=== PATIENT | male | born 1945 | race Caucasian/White ===

== ENCOUNTER → 2018-10-19 10:46 | Outpatient (CLI) | payer MEDICARE | END | disposition home or self-care (01) | LOC: D.US 10:46 | PROVIDERS: ATTEND Internal Medicine Nephrology | DX: M79.605 Pain in left leg (principal); M79.604 Pain in right leg ==

== ENCOUNTER 2018-12-13 08:42 | Day surgery (SDC) | payer MEDICARE ==
[~2018-12-13] VITALS: Ht 177.8 cm; Wt 77.3 kg
[2018-12-13 09:20] LABS: BASOPHILS 0.4 % (0-2); EOSINOPHILS 4.2 % (0-7); HEMATOCRIT 32.7 % (42.0-54.0); HEMOGLOBIN 10.9 g/dL (13.5-17.5); IMMATURE GRANULOCYTES 0.2 % (0-5); LYMPHOCYTES 25.6 % (15-50); MCHC 33.3 g/dL (31.0-37.0); MCV 99.1 fL (80.0-100.0); MEAN PLATELET VOLUME 9.9 fL (7.4-10.4); MONOCYTES 14.4 % (2-11); NEUTROPHILS 55.2 % (40-80); PLATELET COUNT 151 10x3/uL (130-400); RDW 15.2 % (11.5-14.5); WBC 8.2 10x3/uL (4.8-10.8)
[2018-12-13 09:24] LABS: ANION GAP 10.6 mmol/L (8-16); CALCIUM 8.7 mg/dL (8.5-10.1); CARBON DIOXIDE 31.3 mmol/L (21.0-32.0); POTASSIUM - SERUM 3.9 mmol/L (3.5-5.1)
[2018-12-13 09:33] LABS: INR 1.15 (0.85-1.17); PROTIME 14.2 SECONDS (11.6-15.0)
[2018-12-13] MEDS ORDERED: LIPITOR40 MG PO (11:18)
[2018-12-13] MEDS ORDERED: LEVOTHYROXINE125 MCG PO (11:18)
[2018-12-13] MEDS ORDERED: RENA-VITE TABL0.8 MG PO (11:19)
[2018-12-13] MEDS ORDERED: HYDRALAZINE HCL25 MG PO (11:19)
[2018-12-13] MEDS ORDERED: ZOLOFT100 MG PO (11:20)
[2018-12-13] MEDS ORDERED: FERROUS SULFAT325 MG PO (11:20)
[2018-12-13] MEDS ORDERED: CEREFOLIN TAB1 TAB PO (11:21)
[2018-12-13] MEDS ORDERED: BASAGLAR K100 UNIT/1 SC (11:22)
[2018-12-13] MEDS ORDERED: ULTRAM50 MG PO (11:23)
[2018-12-13 11:41] VITALS: Ht 177.8 cm; Wt 77.3 kg
--- NOTE | 2018-12-13 13:07 | NUR ---
[address] VENTURA OFFICE NOTIFIED. CXR FAXED TO OFFICE. DR. OCONNOR'S OFFICE NURSE NOTIFIED PER DR. MCGOVERN'S ORDER. RENAL ADA DIET SERVED. PT. HAS O2 OFF AND 94% ON ROOM AIR AT PRESENT TIME ON BEDREST.
--- NOTE | 2018-12-13 13:34 | NUR ---
1330 ROOM AIR 94% SAT. ATE 30% RENAL ADA DIET. JOSLYN ROSENTHAL .
--- NOTE | 2018-12-13 14:02 | NUR ---
1400 DR. ROCHA OFFICE NOTIFIED OF CONSULT. DR. OCONNOR NOTIFIED OF DR. OCONNOR OFFICE AND CONFUSION ABOUT DR. ROCHA OFFICE CONSULT. JOSLYN HODGE APN PAGED.
--- NOTE | 2018-12-13 14:44 | NUR ---
1440 ROOM CHECK PULSE OX 90-94% ON ROOM AIR.
--- NOTE | 2018-12-13 15:46 | NUR ---
3081 MARILUZ HODGE APN PAGED THRU OFFICE.
--- NOTE | 2018-12-13 16:45 | NUR ---
1640 ROOM TRUONG, O2 SAT 90-94% ON BEDREST RR 20 PULSE IS 80. STATES HE USUSALLY GETS HIS MEDICATION THRU HOSPISE BUT HAS USED [facility] BEFORE.
--- NOTE | 2018-12-13 20:14 | NUR ---
1740 PULSE OX 90-94% ON ROOM AIR RENAL ADA DIET ORDERED A CALL PLACED TO DR. ROCHA OFFICE MESSAGE LEFT ON VOICE MAIL TO CALL. 1830 PT DRESSED AND AT DESK STATES HE IS NOT STAYING ANY LONGER AT THE HOSPITAL. AND READY TO GO. 1840 DC INSTS GIVEN TO CONTINUE HOME MEDICATIONS AND FOLLOW UP WITH DR. ROCHA. PT WILL CONTINUE DIALYSIS SCHEDULED TOMORROW.
--- NOTE | 2018-12-13 20:17 | NUR ---
1849 RELEASED IN [facility]
== END 2018-12-13 18:50 | disposition home or self-care (01) ==
LOC: D.OPS 08:42
PROVIDERS: Surgery; ATTEND Internal Medicine Nephrology
DX: N18.6 End stage renal disease (principal); Z53.09 Procedure and treatment not carried out because of other contraindication; J90 Pleural effusion, not elsewhere classified; R93.1 Abnormal findings on diagnostic imaging of heart and coronary circulation; I25.10 Atherosclerotic heart disease of native coronary artery without angina pectoris; Z01.812 Encounter for preprocedural laboratory examination

== ENCOUNTER → 2018-12-16 10:45 | Outpatient (CLI) | payer MEDICARE ==
[2018-12-13 11:41] VITALS: BMI 24.4
[~2018-12-16 10:45] MED LIST: BASAGLAR K100 UNIT/1 SC; CEREFOLIN TAB1 TAB PO; FERROUS SULFAT325 MG PO; HYDRALAZINE HCL25 MG PO; LEVOTHYROXINE125 MCG PO; LIPITOR40 MG PO; RENA-VITE TABL0.8 MG PO; ULTRAM50 MG PO; ZOLOFT100 MG PO
== END | disposition home or self-care (01) ==
LOC: D.RAD 10:45
PROVIDERS: ATTEND Internal Medicine Nephrology
DX: R06.02 Shortness of breath (principal)

== ENCOUNTER → 2019-01-11 10:36 | Outpatient (CLI) | payer MEDICARE ==
[2018-12-13 11:41] VITALS: BMI 24.4
[~2019-01-11 10:36] MED LIST changes: -HYDRALAZINE HCL25 MG PO; +HYDRALAZINE HCL50 MG PO; +HYDROCODON-ACE1 EAC7 PO; +PROTONIX40 MG PO; -ZOLOFT100 MG PO; +ZOLOFT50 MG PO
== END | disposition home or self-care (01) ==
LOC: D.RAD 10:36
PROVIDERS: ATTEND Internal Medicine Nephrology
DX: R06.02 Shortness of breath (principal)

== ENCOUNTER → 2019-02-06 13:20 | Outpatient (CLI) | payer MEDICARE ==
[2018-12-13 11:41] VITALS: BMI 24.4
[2019-02-07 11:10] LABS: ANA REFLEX - DIRECT Negative (Negative)
== END | disposition home or self-care (01) ==
LOC: D.LABREF 13:20
PROVIDERS: ATTEND Internal Medicine Pulmonary Disease
DX: J90 Pleural effusion, not elsewhere classified (principal)

== ENCOUNTER → 2019-02-21 08:08 | Outpatient (CLI) | payer MEDICARE ==
[2018-12-13 11:41] VITALS: BMI 24.4
== END | disposition home or self-care (01) ==
LOC: D.CT 02-09 09:30
PROVIDERS: ATTEND Internal Medicine Pulmonary Disease
DX: J90 Pleural effusion, not elsewhere classified (principal)

== ENCOUNTER 2019-03-02 16:49 | Inpatient (IN) | payer MEDICARE ==
[~2019-03-02] VITALS: Ht 177.8 cm; Wt 76.8 kg
[~2019-03-02 16:49] MED LIST changes: -HYDROCODON-ACE1 EAC7 PO; -PROTONIX40 MG PO
--- NOTE | 2019-03-02 17:05 | NUR ---
PATIENT ARRIVED HERE FROM HIS HOME. HE WAS C/O BACK PAIN AND ABD PAIN. HE IS A DIRECT ADMIT TO DR ROCHA. HE IS ALERT AND ORIENTED, HE DENIES ANY NEEDS AT THIS TIME. HE CAME TO THE FLOOR BY STRETCHER WITH EMT'S AND ARRIVED BY AMBULANCE.
[2019-03-02] MEDS ORDERED: PROTONIX40 MG PO (17:22)
[2019-03-02] MEDS ORDERED: HYDROCODON-ACE1 EAC7 PO (17:23)
[2019-03-02 17:36] VITALS: BP 131/76
[2019-03-02 17:53] LABS: BASOPHILS 0.1 % (0-2); EOSINOPHILS 1.9 % (0-7); HEMOGLOBIN 11.5 g/dL (13.5-17.5); IMMATURE GRANULOCYTES 0.8 % (0-5); LYMPHOCYTES 13.3 % (15-50); MCH 35.6 pg (26.0-34.0); MCHC 33.8 g/dL (31.0-37.0); MCV 105.3 fL (80.0-100.0); MEAN PLATELET VOLUME 9.8 fL (7.4-10.4); MONOCYTES 13.5 % (2-11); NEUTROPHILS 70.4 % (40-80); PLATELET COUNT 140 10x3/uL (130-400); RBC 3.23 10x6/uL (4.20-6.10); RDW 13.5 % (11.5-14.5); WBC 8.5 10x3/uL (4.8-10.8)
[2019-03-02 18:08] LABS: ALBUMIN 2.9 g/dL (3.4-5.0); ANION GAP 12.5 mmol/L (8-16); BILIRUBIN - TOTAL 0.59 mg/dL (0.2-1.3); CALCIUM 8.6 mg/dL (8.5-10.1); CREATININE - SERUM 5.8 mg/dL (0.6-1.3); POTASSIUM - SERUM 4.5 mmol/L (3.5-5.1); PROTEIN - SERUM 8.2 g/dL (6.4-8.2)
[2019-03-02 18:25] VITALS: BP 131/76; BMI 24.1
--- NOTE | 2019-03-02 19:30 | NUR ---
EVENING ROUNDS COMPLETE. PT SITTING UP IN BED. NO SIGNS OF DISTRESS. AAOX4. CL IN REACH, BED IN LOWEST POSITION.
[2019-03-02 20:00] VITALS: BP 133/77
--- NOTE | 2019-03-02 21:49 | NUR ---
PT WITH HEART RATE OF 84 FLUTTER PER CERAMIC TILE MECHANIC
[2019-03-03] VITALS: BP 127/71
[2019-03-03 02:35] LABS: BASOPHILS 0.2 % (0-2); EOSINOPHILS 3.2 % (0-7); IMMATURE GRANULOCYTES 0.5 % (0-5); LYMPHOCYTES 15.8 % (15-50); MCH 34.8 pg (26.0-34.0); MCHC 33.3 g/dL (31.0-37.0); MCV 104.4 fL (80.0-100.0); MEAN PLATELET VOLUME 9.9 fL (7.4-10.4); MONOCYTES 15.3 % (2-11); PLATELET COUNT 138 10x3/uL (130-400); RBC 3.16 10x6/uL (4.20-6.10); RDW 13.4 % (11.5-14.5); WBC 8.6 10x3/uL (4.8-10.8)
[2019-03-03 02:58] LABS: ALBUMIN 2.7 g/dL (3.4-5.0); ANION GAP 14.9 mmol/L (8-16); BILIRUBIN - TOTAL 0.62 mg/dL (0.2-1.3); CALCIUM 8.6 mg/dL (8.5-10.1); CARBON DIOXIDE 26.2 mmol/L (21.0-32.0); CREATININE - SERUM 5.8 mg/dL (0.6-1.3); POTASSIUM - SERUM 4.1 mmol/L (3.5-5.1); PROTEIN - SERUM 7.9 g/dL (6.4-8.2)
[2019-03-03 04:00] VITALS: BP 178/98
[2019-03-03 08:32] VITALS: BP 143/85
[2019-03-03 10:47] LABS: APPEARANCE CLEAR (CLEAR); COLOR YELLOW (YELLOW); NITRITE NEGATIVE (NEGATIVE); PROTEIN 2+ mg/dL (NEGATIVE); SPECIFIC GRAVITY 1.005 (1.005-1.020)
[2019-03-03 10:48] LABS: BILIRUBIN NEGATIVE (NEGATIVE); GLUCOSE NEGATIVE (NEGATIVE); KETONE NEGATIVE (NEGATIVE); UROBILINOGEN NORMAL (NORMAL)
[2019-03-03 11:03] LABS: BACTERIA NONE SEEN /hpf (NEGATIVE); EPITHELIAL CELLS NSEEN /hpf (0-5); RED CELLS - URINE 0-5 /hpf (0-5); WHITE CELLS - URINE 0-5 /hpf (NEGATIVE)
[2019-03-03 13:36] VITALS: Ht 177.8 cm; Wt 76.8 kg
[2019-03-03 14:52] VITALS: BP 113/50
--- NOTE | 2019-03-03 16:45 | NUR ---
PATIENT CAME BACK FROM XRAY. THE PAIN MEDICATION IS BARELY TOUCHING THE PAIN. HE IS STILL SCHEDULED TO HAVE DIALYSIS THIS EVENING AROUND 1800.
--- NOTE | 2019-03-03 17:44 | MORECARE ---
CASE MANAGEMENT DISCHARGE SUMMARY PATIENT: PHOEBE MCKEON UNIT: [id number] ADM DATE: 03/03/19 AGE: 73 : 44 SEX: M ROOM/BED: D.2103 AUTHOR: KALANI,DOC PHYSICIAN: REFERRING PHYSICIAN: EUNICE ROCHA DO DATE OF SERVICE: 03/03/19 Discharge Plan Patient Name: PHOEBE MCKEON Facility: [facility]:[place] : 1945 Planned Disposition: Home with Hospice Anticipated Discharge Date: Discharge Date: Expected LOS: Initial Reviewer: [email or web address] Initial Review Date: 03/02/2019 Generated: 03/03/19 6:43 pm Comments DCP- Discharge Planning Updated by [email or web address]: Boby Jordan on 03/03/19 4:[address] Patient Name: PHOEBE MCKEON Admission Status: Urgent Accout number: [id number] Admission Date: 03-03-2019 : 1945 Admission Diagnosis: Attending: EUNICE ROCHA Current LOS: 1 Anticipated DC Date: Planned Disposition: Home with Hospice Primary Insurance: MEDICARE A & B PLANNED EXTERNAL PROVIDER: HOSPICE HOME CARE Discharge Planning Comments: CM MET WITH PT IN ROOM TO DISCUSS DISCHARGE PLANNING AND NEEDS. PT REPORTS LIVING AT HOME INDEPENDENTLY WITH HIS . PT HAS WALKER, WHEELCHAIR AND LIFT CHAIR. PT HAS HOSPICE WITH HOSPICE HOME CARE. PT WILL RESUME THEIR CARE AT DISCHARGE. CHOICE SIGNED. PT HAS NO OTHER OUTSIDE SERVICES ASSISTING IN THE HOME. CM DISCUSSED AVAILABILITY OF HOME HEALTH, REHAB SERVICES AND MEDICAL EQUIPMENT. PT DENIES DISCHARGE NEEDS OTHER THAN HOSPICE RESUMPTION. PT REPORTS SOMEONE WILL PICK HIM UP FOR DISCHARGE HOME. TO RESUME HOSPICE AT DISCHARGE, NOTIFY HOSPICE AT [phone], FAX DISCHARGE INFORMATION TO HOSPICE HOME CARE AT [phone]. CM TO CONTINUE TO FOLLOW AND ASSIST NEEDED. Automobile Dealer: Boby Jordan DCPIA - Discharge Planning Initial Assessment Updated by [email or web address]: Boby Jordan on 03/03/19 5:39 pm * Is the patient Alert and Oriented? Yes * How many steps to enter\exit or inside your home? NONE * PCP DR ROCHA * Pharmacy [facility] IN [place] * Preadmission Environment Home with Family * ADLs Independent * Equipment Walker Wheelchair * Other Equipment LIFT CHAIR HOSPICE PROVIDES MEDICAL EQUIPMENT * List name and contact numbers for known caregivers / representatives who currently or will assist patient after discharge: SHAHZAD, SPOUSE, * Verbal permission to speak to the caregivers and representatives has been obtained from the patient. N/A * Community resources currently utilized Hospice Home * Please name any agencies selected above. HOSPICE HOME CARE * Additional services required to return to the preadmission environment? No * Can the patient safely return to the preadmission environment? Yes * Has this patient been hospitalized within the prior 30 days at any hospital? No Patient Name: PHOEBE MCKEON Page 00566 at 1744 All edits/amendments must be made on the electronic document DICTATION DATE: 03/03/191742 ENROLLMENT REPRESENTATIVE: OLIVA 03/03/191742 RPT#: [id number] DC DATE: STATUS: ADM IN [facility] [address] [place] [address] END OF REPORT
--- NOTE | 2019-03-03 17:51 | MORECARE ---
CASE MANAGEMENT DISCHARGE SUMMARY PATIENT: PHOEBE MCKEON UNIT: [id number] ADM DATE: 03/03/19 AGE: 73 : 44 SEX: M ROOM/BED: D.2103 AUTHOR: KALANI,DOC PHYSICIAN: REFERRING PHYSICIAN: EUNICE ROCHA DO DATE OF SERVICE: 03/03/19 Discharge Plan Patient Name: PHOEBE MCKEON Facility: [facility]:[place] : 1945 Planned Disposition: Home with Hospice Anticipated Discharge Date: Discharge Date: Expected LOS: Initial Reviewer: [email or web address] Initial Review Date: 03/02/2019 Generated: 03/03/19 6:51 pm Comments DCP- Discharge Planning Updated by [email or web address]: Boby Jordan on 03/03/19 4:[address] Patient Name: PHOEBE MCKEON Admission Status: Urgent Accout number: [id number] Admission Date: 03-03-2019 : 1945 Admission Diagnosis: Attending: EUNICE ROCHA Current LOS: 1 Anticipated DC Date: Planned Disposition: Home with Hospice Primary Insurance: MEDICARE A & B PLANNED EXTERNAL PROVIDER: HOSPICE HOME CARE Discharge Planning Comments: CM MET WITH PT IN ROOM TO DISCUSS DISCHARGE PLANNING AND NEEDS. PT REPORTS LIVING AT HOME INDEPENDENTLY WITH HIS . PT HAS WALKER, WHEELCHAIR AND LIFT CHAIR. PT HAS HOSPICE WITH HOSPICE HOME CARE. PT WILL RESUME THEIR CARE AT DISCHARGE. CHOICE SIGNED. PT HAS NO OTHER OUTSIDE SERVICES ASSISTING IN THE HOME. CM DISCUSSED AVAILABILITY OF HOME HEALTH, REHAB SERVICES AND MEDICAL EQUIPMENT. PT DENIES DISCHARGE NEEDS OTHER THAN HOSPICE RESUMPTION. PT REPORTS SOMEONE WILL PICK HIM UP FOR DISCHARGE HOME. TO RESUME HOSPICE AT DISCHARGE, NOTIFY HOSPICE AT [phone], FAX DISCHARGE INFORMATION TO HOSPICE HOME CARE AT [phone]. CM TO CONTINUE TO FOLLOW AND ASSIST NEEDED. Branch Rental Manager: Boby Jordan DCPIA - Discharge Planning Initial Assessment Updated by [email or web address]: Boby Jordan on 03/03/19 5:39 pm * Is the patient Alert and Oriented? Yes * How many steps to enter\exit or inside your home? NONE * PCP DR ROCHA * Pharmacy [facility] IN [place] * Preadmission Environment Home with Family * ADLs Independent * Equipment Walker Wheelchair * Other Equipment LIFT CHAIR HOSPICE PROVIDES MEDICAL EQUIPMENT * List name and contact numbers for known caregivers / representatives who currently or will assist patient after discharge: SHAHZAD, SPOUSE, * Verbal permission to speak to the caregivers and representatives has been obtained from the patient. N/A * Community resources currently utilized Hospice Home * Please name any agencies selected above. HOSPICE HOME CARE * Additional services required to return to the preadmission environment? No * Can the patient safely return to the preadmission environment? Yes * Has this patient been hospitalized within the prior 30 days at any hospital? No External Providers External Provider: [facility] Next Contact Date: 03/03/2019 Service Request Date: Service Type: Resolution: Reviewer: Comments: Coverage Notice Reviewer: [id number] Reji Jordan Notice Issued Date-Time: 03/03/2019 15:40 Notice Type: IM Discharge Notice Notice Delivered To: Patient Relationship to Patient: Occupational Therapy Director Name: Delivery Method: HAND - Hand Delivered Chana Days: Prior Verbal Notification: Recipient Understood Notice: Yes Recipient Signature: Yes Med Rec Note Co-signed by Attending: Coverage Notice Comment: HOSPICE HOME CARE Last DP export: 03/03/19 4:44 p Patient Name: PHOEBE MCKEON Page [phone] at 1751 All edits/amendments must be made on the electronic document DICTATION DATE: 03/03/191750 HEAD MACHINE FEEDER: OLIVA 03/03/191750 RPT#: [id number] DC DATE: STATUS: ADM IN [facility] [address] [place] [address] END OF REPORT
--- NOTE | 2019-03-03 18:38 | NUR ---
PATIENT IS IN DIALYSIS AT THIS TIME.
[2019-03-03 20:00] VITALS: BP 141/97
--- NOTE | 2019-03-03 21:00 | NUR ---
PT RETURNED TO ROOM. NO COMPLAINTS AT THIS TIME. WILL CTM.
[2019-03-04] VITALS: BP 130/79
--- NOTE | 2019-03-04 03:26 | NUR ---
PT FOUND WONDERING IN THE [place]. NOT ORIENTED TO SITUATION OR PLACE, SEARCHING FOR HIS . WILL JEISON
[2019-03-04 04:00] VITALS: BP 138/69
[2019-03-04 05:07] LABS: BASOPHILS 0.3 % (0-2); EOSINOPHILS 3.6 % (0-7); IMMATURE GRANULOCYTES 0.6 % (0-5); MCH 35.6 pg (26.0-34.0); MCHC 33.6 g/dL (31.0-37.0); MCV 106.1 fL (80.0-100.0); MEAN PLATELET VOLUME 10.6 fL (7.4-10.4); MONOCYTES 13.9 % (2-11); NEUTROPHILS 62.6 % (40-80); PLATELET COUNT 144 10x3/uL (130-400); RBC 3.76 10x6/uL (4.20-6.10); RDW 13.6 % (11.5-14.5); WBC 9.9 10x3/uL (4.8-10.8)
[2019-03-04 05:13] LABS: HEMATOCRIT 39.9 % (42.0-54.0); HEMOGLOBIN 13.4 g/dL (13.5-17.5)
[2019-03-04 05:31] LABS: ALBUMIN 2.9 g/dL (3.4-5.0); ANION GAP 16.4 mmol/L (8-16); BILIRUBIN - TOTAL 0.67 mg/dL (0.2-1.3); CALCIUM 9.1 mg/dL (8.5-10.1); CARBON DIOXIDE 25.3 mmol/L (21.0-32.0); CREATININE - SERUM 4.9 mg/dL (0.6-1.3); PHOSPHOROUS 5.2 mg/dL (2.5-4.9); POTASSIUM - SERUM 4.7 mmol/L (3.5-5.1); PROTEIN - SERUM 8.8 g/dL (6.4-8.2)
--- NOTE | 2019-03-04 07:56 | NUR ---
A/A/OX4. UP AMB IN HALLWAYS AND ROOM. STATES HE WANTS TO GO HOME TODAY. DENIES ANY PAIN OR DISCOMFORT AND NO REQUESTS VOICED. ASSESSMENT COMPLETED AND WILL CONTINUE POC.
[2019-03-04 10:35] VITALS: BP 196/61
--- NOTE | 2019-03-04 10:48 | NUR ---
I have reviewed this patient and I concur with the Shift Assessment completed by the Licensed Practical Nurse today this shift.
[2019-03-04 12:50] VITALS: BP 116/78
--- NOTE | 2019-03-04 17:23 | NUR ---
ASKED ME IF I COULD SEE THOSE "PISS ANTS" CRAWLING ON HIS MEAL TRAY. WHEN I TOLD HE THERE WERE NO ANTS, HE SAID YOU'RE JUST LIKE MY DAUGHTER, SHE NEVER SEES ANYTHING I SEE. HE IS ORIENTED OTHERWISE.
--- NOTE | 2019-03-04 19:00 | NUR ---
PT CARE ASSUMED. RR EVEN AND UNLABORED ON RA. PT RESTING QUIETLY WITH EYES CLOSED. NO NEEDS EXPRESSED. NO S/S OF DISTRESS NOTED AT THIS TIME. WILL CPCO.
[2019-03-04 20:00] VITALS: BP 132/74
--- NOTE | 2019-03-04 21:04 | NUR ---
PT YELLING IN THE HALLWAY FOR HIS SHAHZAD. DIFFICULT TO REDIRECT BACK TO HIS ROOM. WILL CTM.
--- NOTE | 2019-03-05 00:12 | NUR ---
PT PULLED OFF TELEMETRY AND IS REFUSING TO PUT BACK ON.
[2019-03-05 05:52] LABS: BASOPHILS 0.2 % (0-2); EOSINOPHILS 5.4 % (0-7); HEMATOCRIT 36.5 % (42.0-54.0); HEMOGLOBIN 12.1 g/dL (13.5-17.5); IMMATURE GRANULOCYTES 0.6 % (0-5); MCH 34.5 pg (26.0-34.0); MCHC 33.2 g/dL (31.0-37.0); MEAN PLATELET VOLUME 10.1 fL (7.4-10.4); MONOCYTES 13.8 % (2-11); PLATELET COUNT 150 10x3/uL (130-400); RBC 3.51 10x6/uL (4.20-6.10); RDW 13.2 % (11.5-14.5); WBC 8.1 10x3/uL (4.8-10.8)
[2019-03-05 06:16] LABS: ALBUMIN 2.7 g/dL (3.4-5.0); BILIRUBIN - TOTAL 0.49 mg/dL (0.2-1.3); CALCIUM 8.7 mg/dL (8.5-10.1); CARBON DIOXIDE 24.6 mmol/L (21.0-32.0); CREATININE - SERUM 6.6 mg/dL (0.6-1.3); MAGNESIUM - SERUM 2.2 mg/dL (1.8-2.4); POTASSIUM - SERUM 4.6 mmol/L (3.5-5.1); PROTEIN - SERUM 8.2 g/dL (6.4-8.2)
[2019-03-05 07:51] VITALS: BP 104/68
--- NOTE | 2019-03-05 08:00 | NUR ---
JUST AWOKE AND IS A/A/OX4. DENIES ANY PAIN, DISCOMFORT OR PROBLEMS WITH NO REQUESTS VOICED. SL PATENT TO RIGHT AC WITHOUT REDNESS OR EDEMA AT SITE. DAUTHER AND SON IN LAW AT BEDSIDE. ASSESSMENT COMPLETED AND WILL CONTINUE POC.
[2019-03-05 12:11] VITALS: BP 117/69
[2019-03-05 15:39] VITALS: BP 127/75
[2019-03-05 15:42] LABS: APPEARANCE CLEAR (CLEAR); BACTERIA FEW /hpf (NEGATIVE); BILIRUBIN NEGATIVE (NEGATIVE); COLOR YELLOW (YELLOW); EPITHELIAL CELLS 0-5 /hpf (0-5); GLUCOSE NEGATIVE (NEGATIVE); KETONE NEGATIVE (NEGATIVE); MUCUS <1+ /lpf (NONE SEEN); NITRITE NEGATIVE (NEGATIVE); PROTEIN 2+ mg/dL (NEGATIVE); UROBILINOGEN NORMAL (NORMAL); WHITE CELLS - URINE 0-5 /hpf (NEGATIVE)
--- NOTE | 2019-03-05 15:45 | NUR ---
URINE SPEC COLLECTED AND TAKEN TO LAB.
--- NOTE | 2019-03-05 21:12 | NUR ---
PTS DAUGHTER CAME TO THE DESK AND AGRESSIVELY ASKED FOR HER FATHER TO BE DISCHARGED BECAUSE THEY WERE REFUSING FISTULA PLACEMENT. INFORMED HER THAT WE HAD NO ORDERS TO DISCHARGE AT THIS TIME. SHE STATED THAT SHE WILL "BE MAKING SOME CALLS". RECEIVED PHONE ORDER FROM [facility] PER DR AJ BULLOCK TO DISCHARGE HOME AND RESUME PRE HOSPITALIZATION MEDS. D/C PAPER WORK SIGNED. ALL QUESTIONS ANSWERED. PIV D/C FROM RIGHT AC. CATHETER TIP INTACT. PT LEFT VIA W/C WITH SCOTTIE.
--- NOTE | 2019-03-06 08:34 | MORECARE ---
CASE MANAGEMENT DISCHARGE SUMMARY PATIENT: PHOEBE MCKEON UNIT: [id number] ADM DATE: 03/03/19 AGE: 73 : 44 SEX: M ROOM/BED: D.2103 AUTHOR: KALANIDOC PHYSICIAN: REFERRING PHYSICIAN: EUNICE ROCHA DO DATE OF SERVICE: 03/06/19 Discharge Plan Patient Name: PHOEBE MCKEON Facility: [facility]:[place] : 1945 Planned Disposition: Home with Hospice Anticipated Discharge Date: 03/05/19 Discharge Date: 03/05/2019 Expected LOS: 2 Initial Reviewer: [email or web address] Initial Review Date: 03/02/2019 Generated: 03/06/19 9:34 am Comments DCP- Discharge Planning Updated by [id number]: Boby Jordan on 03/06/19 7:[address] Patient Name: PHOEBE MCKEON Encounter No: [id number] : 1945 Primary Insurance: MEDICARE A & B Anticipated DC Date: Planned Disposition: Home with Hospice DCP follow-up note: CM REVIEWED CHART, PT DISCHARGED OVER THE WEEKEND. CM FAXED DISCHARGE INFORMATION TO HOSPICE HOME CARE AT [phone]. Networking Engineer: Boby Jordan DCP- Discharge Planning Updated by [id number]: Boby Jordan on 03/03/19 4:[address] Patient Name: PHOEBE MCKEON Admission Status: Urgent Accout number: [id number] Admission Date: 03-03-2019 : 1945 Admission Diagnosis: Attending: EUNICE ROCHA Current LOS: 1 Anticipated DC Date: Planned Disposition: Home with Hospice Primary Insurance: MEDICARE A & B PLANNED EXTERNAL PROVIDER: HOSPICE HOME CARE Discharge Planning Comments: CM MET WITH PT IN ROOM TO DISCUSS DISCHARGE PLANNING AND NEEDS. PT REPORTS LIVING AT HOME INDEPENDENTLY WITH HIS . PT HAS WALKER, WHEELCHAIR AND LIFT CHAIR. PT HAS HOSPICE WITH HOSPICE HOME CARE. PT WILL RESUME THEIR CARE AT DISCHARGE. CHOICE SIGNED. PT HAS NO OTHER OUTSIDE SERVICES ASSISTING IN THE HOME. CM DISCUSSED AVAILABILITY OF HOME HEALTH, REHAB SERVICES AND MEDICAL EQUIPMENT. PT DENIES DISCHARGE NEEDS OTHER THAN HOSPICE RESUMPTION. PT REPORTS SOMEONE WILL PICK HIM UP FOR DISCHARGE HOME. TO RESUME HOSPICE AT DISCHARGE, NOTIFY HOSPICE AT [phone], FAX DISCHARGE INFORMATION TO HOSPICE HOME CARE AT [phone]. CM TO CONTINUE TO FOLLOW AND ASSIST NEEDED. Networking Engineer: Boby Jordan DCPIA - Discharge Planning Initial Assessment Updated by [email or web address]: Boby Jordan on 03/03/19 5:39 pm * Is the patient Alert and Oriented? Yes * How many steps to enter\exit or inside your home? NONE * PCP DR ROCHA * Pharmacy [facility] IN [place] * Preadmission Environment Home with Family * ADLs Independent * Equipment Walker Wheelchair * Other Equipment LIFT CHAIR HOSPICE PROVIDES MEDICAL EQUIPMENT * List name and contact numbers for known caregivers / representatives who currently or will assist patient after discharge: SHAHZAD, SPOUSE, * Verbal permission to speak to the caregivers and representatives has been obtained from the patient. N/A * Community resources currently utilized Hospice Home * Please name any agencies selected above. HOSPICE HOME CARE * Additional services required to return to the preadmission environment? No * Can the patient safely return to the preadmission environment? Yes * Has this patient been hospitalized within the prior 30 days at any hospital? No Coverage Notice Reviewer: [id number] - Boby Jordan Notice Issued Date-Time: 03/03/2019 15:40 Notice Type: IM Discharge Notice Notice Delivered To: Patient Relationship to Patient: Gang Pusher Name: Delivery Method: HAND - Hand Delivered Chana Days: Prior Verbal Notification: Recipient Understood Notice: Yes Recipient Signature: Yes Med Rec Note Co-signed by Attending: Coverage Notice Comment: HOSPICE HOME CARE Last DP export: 03/03/19 4:51 p Patient Name: PHOEBE MCKEON Page 14133 at 0834 All edits/amendments must be made on the electronic document DICTATION DATE: 03/06/19833 CRACKER DOUGH MIXER: OLIVA 03/06/19833 RPT#: [id number] DC DATE:03/05/19 STATUS: DIS IN [facility] [address] [place] [address] END OF REPORT
== END 2019-03-05 21:18 | disposition home health service (06) | DRG 689 ==
LOC: D.M2 16:49 → OBSVTIME 16:49 → D.M2 03-03 16:26
PROVIDERS: Internal Medicine Nephrology; ADMIT Family Medicine; ATTEND Family Medicine
DX: N39.0 Urinary tract infection, site not specified (principal); N18.6 End stage renal disease; J18.9 Pneumonia, unspecified organism; G92 Toxic encephalopathy; S22.081A Stable burst fracture of T11-T12 vertebra, initial encounter for closed fracture; I13.2 Hypertensive heart and chronic kidney disease with heart failure and with stage 5 chronic kidney disease, or end stage renal disease; N25.81 Secondary hyperparathyroidism of renal origin; M48.54XA Collapsed vertebra, not elsewhere classified, thoracic region, initial encounter for fracture; E11.22 Type 2 diabetes mellitus with diabetic chronic kidney disease; I50.9 Heart failure, unspecified; D63.1 Anemia in chronic kidney disease; E78.5 Hyperlipidemia, unspecified; I48.91 Unspecified atrial fibrillation; Z66 Do not resuscitate; E11.65 Type 2 diabetes mellitus with hyperglycemia; M54.30 Sciatica, unspecified side; Z99.2 Dependence on renal dialysis; Z51.5 Encounter for palliative care